=== PATIENT | female | born 1965 | race Caucasian/White ===

== ENCOUNTER 2019-01-20 08:24 | Emergency (ER) | payer OTHER, SELFPAY ==
[2019-01-20 08:30] VITALS: BP 128/76; PULSE 82; RESP 20; TEMP 36.9; O2SAT 97; BMI 30.9
--- NOTE | 2019-01-20 08:49 | ED.BACK ---
HPI - Back Pain/Injury General Chief Complaint: Back Pain/Injury Stated Complaint: twisted back Time Seen by Provider: 01/20/19 08:35 Source: patient Mode of arrival: Ambulatory Limitations: no limitations History of Present Illness HPI Narrative: The patient is a 53-year-old female who was at work on the [employer] when she injured her back. 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 She moved it this morning but felt her hip or something twisted this time. She initially was okay but as time went on pain got significantly worse on the right side. It seems to be in her right lower lumbar area and moving up into her thoracic. She has no numbness tingling or weakness in her leg. She currently has ice on it she did take aspirin prior to arrival no changes in bowel or bladder habits. MD Complaint: back pain Onset (ago): hour(s) Duration: constant and progressively worsening Location: lumbar spine Severity: moderate Quality: sharp Context: while lifting and turning/twisting Related Data Previous Rx's Medication Instructions Recorded cyclobenzaprine 5 mg PO TID PRN #10 tab 01/20/19 Allergies Allergy/AdvReac Type Severity Reaction Status Date / Time codeine Allergy Mild Verified 01/20/19 08:30 Review of Systems Review of Systems Narrative: GENERAL: Denies chills,fever HEENT: Denies throat pain RESPIRATORY: Denies dyspnea, cough, wheezing CARDIOVASCULAR: Denies chest pain, palpitations GASTROINTESTINAL: Denies nausea, vomiting MUSCULOSKELETAL: See HPI SKIN: No rash, no laceration, no pruritus NEUROLOGIC: Denies weakness, dizziness, headache, numbness 8 point review of systems is negative except for those stated above and HPI Patient History Medical History Patient denies medical problems (Acute) Surgical History Status post surgery (07/24/09) Social History Smoking Status: Current some day smoker Substance Use Type: does not use Exam Initial Vital Signs Initial Vital Signs: Vital Signs Temperature 98.4 F 01/20/19 08:30 Pulse Rate 82 01/20/19 08:30 Respiratory Rate 20 01/20/19 08:30 Blood Pressure 128/76 01/20/19 08:30 Pulse Oximetry 97 01/20/19 08:30 GENERAL: Well-appearing, well-nourished and in no acute distress. HEENT: Head atraumatic,EOMI, pupils reactive CARDIOVASCULAR: Regular rate and rhythm without murmurs, rubs or gallops. RESPIRATORY: Breath sounds equal bilaterally, no wheezes rales or rhonchi. ABDOMEN: Soft, nontender. Normoactive bowel sounds all 4 quadrants. No guarding or rebound. BACK: Right lower lumbar pain no vertebral tenderness no step-offs. Also pain in the thoracic paraspinal muscles as well. No sign of trauma EXTREMITIES: Normal range of motion, no clubbing or edema. Neurovascularly intact NEUROLOGICAL: Alert and oriented x4.Normal gait and speech. SKIN: Warm, dry, no laceration, no petechiae, no rashes or lesions. Course Orders Ordered: Discontinued Medications Ketorolac Tromethamine (Toradol) 30 mg IM NOW ONE Stop: 01/20/19 08:50 Last Admin: 01/20/19 09:03 Dose: 30 mg Documented by: LIZABETH Vital Signs Vital signs: Vital Signs - 8 hr 01/20/19 08:30 01/20/19 09:22 Temperature 98.4 F Pulse Rate 82 61 Respiratory Rate 20 16 Blood Pressure 128/76 Blood Pressure [Right Arm] 130/81 Pulse Oximetry 97 97 MDM - Back Pain/Injury MDM Narrative Medical decision making narrative: This is likely muscle spasm. She has a lifting twisting injury. No neuropathy or signs of nerve damage at this time. Discharge Plan Departure Patient Disposition: Home Clinical Impression: Strain of lumbar region Qualifiers: Encounter type: initial encounter Qualified Code(s): S39.012A - Strain of muscle, fascia and tendon of lower back, initial encounter Discharge Date/Time: 01/20/19 09:33 Instructions: DI for Low Back Pain Activity Restrictions/Additional Instructions: *You have been diagnosed with low back strain *What to do: Light activity is encouraged no heavy lifting or sitting for long periods of time. Light stretching. Heating pad low heat for at least 30 minutes. *Continue to take medications as directed Ibuprofen 800 mg every 8 hours if needed for [id number] pain Flexeril 5 mg every 8 hours if needed for muscle spasms can cause drowsiness do not drive or operate heavy machinery *Follow up with your primary care provider in 2-3 days *Return to ER if you should have increasing pain, weakness in the legs, loss of urine or any new, worsening or concerning symptoms Prescriptions: New cyclobenzaprine 5 mg tablet 5 mg PO TID PRN (Reason: muscle spasm) Qty: 10 RF: 0 Referrals: Ugo Caicedo MD [Primary Care Provider] - Stand Alone Forms: Work Release Note
[2019-01-20] MEDS: KETOROLAC 60 MG/2 ML VIAL 30 MG IM (09:03)
[2019-01-20 09:22] VITALS: BP 130/81; PULSE 61; RESP 16; O2SAT 97
== END 2019-01-20 09:33 | disposition home or self-care (01) ==
PROVIDERS: Emergency Provider Emergency Medicine; PCP Family Medicine
DX: S39.012A Strain of muscle, fascia and tendon of lower back, initial encounter (principal); Y99.0 Civilian activity done for income or pay
CPT/HCPCS: 96372; 99282; 99283; J1885

== ENCOUNTER 2022-11-17 17:02 | Emergency (ER) | payer OTHER, SELFPAY ==
[2022-11-17 17:30] VITALS: BP 127/68; PULSE 63; RESP 17; TEMP 36.6; O2SAT 97; BMI 26.6
--- NOTE | 2022-11-17 18:06 | ED_ITS ---
HPI - Animal Bite <Chantale Rosas PA-C - Last Filed: 11/17/22 18:52> General Chief Complaint: Animal Bite Stated Complaint: Dog bite Time Seen by Provider: 11/17/22 17:45 Source: patient Mode of arrival: Ambulatory History of Present Illness HPI narrative: 56-year-old female here for dog bite to the right calf that occurred at work today. She works in a factory. A leashed dog lunged at her and bit her on the right leg. She was able to speak with the it application development manager in on a reported dog is up-to-date on immunizations. Patient denies any pain or lack of function in the affected extremity. She is up-to-date on her tetanus shot. Related Data Previous Rx's Medication Instructions Recorded amoxicillin 875 mg-potassium 1 tab PO Q12H 5 days #10 tabs 11/17/22 clavulanate 125 mg tablet Allergies Allergy/AdvReac Type Severity Reaction Status Date / Time codeine Allergy Mild Verified 11/17/22 17:33 Review of Systems <Chantale Rosas PA-C - Last Filed: 11/17/22 18:52> Review of Systems ROS Unobtainable: All systems reviewed & are unremarkable except as noted in HPI and below Patient History <Chantale Rosas PA-C - Last Filed: 11/17/22 18:52> Medical History (Updated 11/17/22 @ 18:09 by Chantale Rosas PA-C) Patient denies medical problems Surgical History Status post surgery (07/24/09) Social History Smoking Status: Current some day smoker Smoking Status: Current some day smoker Substance Use Type: does not use Exam <Chantale Rosas PA-C - Last Filed: 11/17/22 18:52> Narrative Exam Narrative: GENERAL: [56] year old patient appears stated age. Well-developed patient, in mild distress. HEAD: Atraumatic. Normocephalic. EYES: Pupils equal round and reactive. Extraocular motions intact. No scleral icterus. No injection or drainage. ENT: Nose without bleeding, purulent drainage.. Airway patent. NECK: Trachea midline. Non tender RESPIRATORY: Respiratory rate and effort normal EXTREMITIES: No edema or joint tenderness. NEURO: AOx3. SKIN: Right calf with 5 mm puncture wound to the lateral leg. No surrounding erythema or edema, no drainage and no active bleeding. No overt signs of infection. Initial Vital Signs Initial Vital Signs: Vital Signs Temperature 98 F 11/17/22 17:30 Pulse Rate 63 11/17/22 17:30 Respiratory Rate 17 11/17/22 17:30 Blood Pressure 127/68 11/17/22 17:30 Pulse Oximetry 97 11/17/22 17:30 Oxygen Delivery Method Room Air 11/17/22 17:30 <Ava Ferrer MD - Last Filed: 11/17/22 19:30> Initial Vital Signs Initial Vital Signs: Vital Signs Temperature 98 F 11/17/22 17:30 Pulse Rate 63 11/17/22 17:30 Respiratory Rate 17 11/17/22 17:30 Blood Pressure 127/68 11/17/22 17:30 Pulse Oximetry 97 11/17/22 17:30 Oxygen Delivery Method Room Air 11/17/22 17:30 Course <Chantale Rosas PA-C - Last Filed: 11/17/22 18:52> Vital Signs Vital signs: Vital Signs - 8 hr 11/17/22 17:30 11/17/22 18:24 Temperature 98 F Pulse Rate 63 60 Respiratory Rate 17 Blood Pressure 127/68 129/77 Pulse Oximetry 97 98 Oxygen Delivery Method Room Air Room Air <Ava Ferrer MD - Last Filed: 11/17/22 19:30> Vital Signs Vital signs: Vital Signs - 8 hr 11/17/22 17:30 11/17/22 18:24 Temperature 98 F Pulse Rate 63 60 Respiratory Rate 17 Blood Pressure 127/68 129/77 Pulse Oximetry 97 98 Oxygen Delivery Method Room Air Room Air MDM - Animal Bite <Chantale Rosas PA-C - Last Filed: 11/17/22 18:52> MDM Narrative Medical decision making narrative: 56-year-old female presents with dog bite to right lateral calf. This is a low risk injury due to location however the wound is already closed and there is no possibility of irrigating the wound at this point so prophylactic antibiotics are indicated. Patient prescribed Augmentin. No tenderness, surrounding erythema or edema or drainage. Patient given ED return precautions should she develop signs and symptoms of infection. Discharge Plan Departure Patient Disposition: Home Clinical Impression: Dog bite Qualifiers: Encounter type: initial encounter Qualified Code(s): W54.0XXA - Bitten by dog, initial encounter Instructions: DI for Dog Bite Activity Restrictions/Additional Instructions: You were seen today in the ED for a dog bite to right leg. There is no possibility of irrigating the wound at this time due to it being closed already. Therefore he will be prescribed preventative antibiotics. Please take medication as prescribed. We discussed signs and symptoms of infection and worsening condition. Please return to ED if any of these occur. It was a pleasure meeting you today. Prescriptions: New amoxicillin-pot clavulanate 875-125 mg tablet 1 tab PO Q12H 5 Days Qty: 10 0RF Referrals: Ugo Caicedo MD [Primary Care Provider] - Stand Alone Forms: Patient Portal/API <Ava Ferrer MD - Last Filed: 11/17/22 19:30> Cosign ED Attending Doraature Attestation: I do not see this patient. I was available at all times for consultation.
[2022-11-17 18:24] VITALS: BP 129/77; PULSE 60; O2SAT 98
== END 2022-11-17 18:26 | disposition home or self-care (01) ==
PROVIDERS: Emergency Provider Physician Assistant; PCP Family Medicine
DX: S81.851A Open bite, right lower leg, initial encounter (principal); W54.0XXA Bitten by dog, initial encounter
CPT/HCPCS: 99281